=== PATIENT | male | born 1990 | race Caucasian/White ===

== ENCOUNTER 2019-01-29 15:54 | Emergency (ER) | payer SELFPAY ==
[~2019-01-29] VITALS: Ht 165.1 cm; Wt 84.1 kg
[2019-01-29] MEDS ORDERED: PROZAC20 MG PO (16:00)
[2019-01-29] MEDS ORDERED: ABILIFY10 MG PO (16:00)
[2019-01-29] MEDS ORDERED: NEURONTIN 300300 MG PO (16:01)
[2019-01-29] MEDS ORDERED: TENORMIN25 MG PO (16:01)
[2019-01-29] MEDS ORDERED: KLONOPIN1 MG PO (16:01)
[2019-01-29] MEDS ORDERED: BUSPIRONE HCL30 MG PO (16:01)
[2019-01-29 16:12] VITALS: Ht 165.1 cm; Wt 84.1 kg
[2019-01-29] MEDS ORDERED: VIBRAMYCIN 100100 MG PO (19:01)
[2019-01-29 19:40] VITALS: BP 143/90
== END 2019-01-29 19:40 | disposition home or self-care (01) ==
LOC: D.ER 15:54
DX: A64 Unspecified sexually transmitted disease (principal)

== ENCOUNTER 2019-02-07 22:40 | Emergency (ER) | payer SELFPAY ==
[~2019-02-07 22:40] MED LIST: ABILIFY10 MG PO; BUSPIRONE HCL30 MG PO; KLONOPIN1 MG PO; NEURONTIN 300300 MG PO; PROZAC20 MG PO; TENORMIN25 MG PO; VIBRAMYCIN 100100 MG PO
[2019-02-07 23:01] VITALS: BMI 30.8
[2019-02-08 00:33] LABS: APPEARANCE CLEAR (CLEAR); BILIRUBIN NEGATIVE (NEGATIVE); COLOR YELLOW (YELLOW); EPITHELIAL CELLS 0-5 /hpf (0-5); GLUCOSE NEGATIVE (NEGATIVE); KETONE NEGATIVE (NEGATIVE); NITRITE NEGATIVE (NEGATIVE); PROTEIN TRACE mg/dL (NEGATIVE); RED CELLS - URINE 0-5 /hpf (0-5); UROBILINOGEN NORMAL (NORMAL); WHITE CELLS - URINE RARE /hpf (0-5)
[2019-02-08] MEDS ORDERED: VIBRAMYCIN 100100 MG PO (02:38)
[2019-02-08 04:42] VITALS: BP 134/83
[2019-02-11 21:06] LABS: CHLAMYDIA TRACHOMATIS, NAA Negative (Negative)
== END 2019-02-08 03:20 | disposition home or self-care (01) ==
LOC: EDSEX 22:40 → D.ER 22:40
PROVIDERS: Emergency Medicine
DX: N34.2 Other urethritis (principal)